=== PATIENT | male | born 1960 | race Caucasian/White ===

== ENCOUNTER 2019-08-09 12:53 | Emergency (ER) | payer OTHER, BC, SELFPAY ==
[2019-08-09 12:55] VITALS: BP 160/89; PULSE 71; RESP 18; TEMP 36.7; O2SAT 99
[2019-08-09 14:00] VITALS: BP 151/84; PULSE 75; RESP 19; TEMP 37.1; O2SAT 96
[2019-08-09 15:30] VITALS: BP 145/95
--- NOTE | 2019-08-09 23:40 | ED.GENADULT ---
HPI - General Adult <LIZZIE Vera - Last Filed: 08/09/19 23:51> General Chief complaint: Hypertension Stated complaint: High BP- 160/98, not sleeping Time Seen by Provider: 08/09/19 14:13 Source: patient Mode of arrival: Ambulatory Limitations: no limitations History of Present Illness HPI narrative: This is a 59-year-old male, nonsmoker, who presents to ED with his son with elevated blood pressure and insomnia for 4 days. Patient was evaluated by his PCP 5 days ago with nasal congestion and cold symptoms and prescribed with Tessalon cough perles Flonase and has been taking Sambucal cough lozenges. Patient has taken blood pressure at home and noticed it was elevated up to 160/98. Patient denies chest pain, breathing difficulty, dizziness, weakness to extremities, vision change, headaches. Patient's usual blood pressure is in 130 is over 80s. Patient denies frequent coughing or fever/chills. Patient works graveyard shifts and has been having difficult time sleeping even after taking melatonin 10 mg. Patient used to take Benadryl for sleep aid but advised by his primary care physician not to take Benadryl. Patient denies history of urinary retention. Related Data Home Medications Medication Instructions Recorded Confirmed metoprolol tartrate 12.5 mg PO BID #0 09/28/12 08/09/19 benzonatate 100 - 200 mg PO TID PRN 08/09/19 08/09/19 melatonin 1 tab PO BEDTIME PRN 08/09/19 08/09/19 simvastatin 40 mg PO QPM 08/09/19 08/09/19 Previous Rx's Medication Instructions Recorded zolpidem [Ambien] 5 mg PO BEDTIME #7 tab 08/09/19 Allergies Allergy/AdvReac Type Severity Reaction Status Date / Time No Known Drug Allergies Allergy Verified 08/09/19 13:02 Review of Systems <LIZZIE Vera - Last Filed: 08/09/19 23:51> Review of Systems Narrative: General: Denies fever, chills, fatigue, malaise, sweats. HEENT: Denies sinus pain, ear pain, sore throat, difficulty swallowing, dizziness. Respiratory: Denies dyspnea, cough, wheezing, hemoptysis, sputum, (+) nasal congestion. Cardiovascular: HPI Gastrointestinal: Denies nausea, vomiting, abdominal pain, diarrhea, constipation, melena. : Denies dysuria, frequency, incontinence, hematuria, urinary retention. Musculoskeletal: Denies weakness, joint pain or bony pain. Skin: Denies rash, skin lesions, or other. Neurologic: Denies weakness, headache, numbness, change in speech, confusion, seizures, incoordination. Psychiatric: No concerning psychosocial issues. 12-point review of systems is negative except for those stated above. Patient History <LIZZIE Vera - Last Filed: 08/09/19 23:51> Social History Smoking Status: Never smoker Smoking Status: Never smoker Substance Use Type: does not use Exam <LIZZIE Vera - Last Filed: 08/09/19 23:51> Narrative Exam Narrative: General appearance: well developed, well nourished, in no acute distress. Head: normocephalic, atraumatic, no scalp lesions, non-tender. ENT: Bilateral auditory canals and tympanic membranes clear. Hearing grossly intact. Nose without bleeding, purulent discharge, septal hematoma or deviation. Turbinate with erythema or swelling. Facial sinuses nontender to palpate. Mucous membrane moist, no mucosal lesion. Throat without erythema, tonsillar hypertrophy or exudate. Uvula in midline, airway patent. Neck/Thyroid: neck supple, full range of motion, no visible masses or meningeal signs. No JVD, non-tender without lymphadenopathy. Skin: no suspicious rashes, lesions over visible areas. Warm and dry and appropriate color for ethnicity. Heart: no clubbing, no cyanosis, no edema. S1 and S2 normal. RRR w/o murmurs, clicks, or bruits. Lungs: Breathing even and unlabored. Lung sounds clear to auscultate in all lobes. No stridor. No accessory muscles used. Able to speak in full sentences. Chest: normal shape and expansion. Abdomen: non-obese, non-distended. Neurologic: alert and oriented. Cognitive exam, [employer] and PNS grossly intact on informal exam. Psych: good eye contact, normal affect. Initial Vital Signs Initial Vital Signs: Vital Signs Temperature 98.1 F 08/09/19 12:55 Pulse Rate 71 08/09/19 12:55 Respiratory Rate 18 08/09/19 12:55 Blood Pressure 160/89 H 08/09/19 12:55 Pulse Oximetry 99 08/09/19 12:55 <Imani Carrillo MD - Last Filed: 08/10/19 08:11> Initial Vital Signs Initial Vital Signs: Vital Signs Temperature 98.1 F 08/09/19 12:55 Pulse Rate 71 08/09/19 12:55 Respiratory Rate 18 08/09/19 12:55 Blood Pressure 160/89 H 08/09/19 12:55 Pulse Oximetry 99 08/09/19 12:55 Scores <Wander Khoury [employer] OPERATOR - Last Filed: 08/09/19 23:51> [facility] [place] coma scale eye opening: Spontaneous [place] coma scale verbal response: Orientated Matthew coma scale motor response: Obey commands Matthew coma scale total score: 15 Medical Decision Making <Wander KhouryLIZZIE - Last Filed: 08/09/19 23:51> Differential Diagnosis Differential Diagnosis: Elevated blood pressure, viral illness, upper respiratory infection, insomn Medical Records Medical records reviewed: Yes I reviewed the patient's medical records. MDM Narrative Medical decision making narrative: Patient's physical exam was unremarkable. Patient continues to have nasal congestion. Patient is afebrile with moderately elevated blood pressure as 160/89. Patient has not been sleeping well for last 4 days without any cardiac symptoms such as chest pain, breathing difficulty, dizziness, nausea or vomiting, sweaty feeling. Tessalon cough perles' side effect does not indicates insomnia. Patient discharged to home with few tabs of Ambien for acute insomnia with possible adverse effects of medication but advised to use Benadryl 1st since this has worked in the past. Advise continue with supportive care. Patient provided with work off note for a day. Patient's blood pressure improved to 145/95 prior discharged to home. Return precautions were discussed with the patient and verbalized understanding and in agreement with the treatment plan. Discharge Plan Departure Patient Disposition: Home Clinical Impression: Elevated blood pressure reading Upper respiratory infection Qualifiers: URI type: unspecified URI Qualified Code(s): J06.9 - Acute upper respiratory infection, unspecified Insomnia Qualifiers: Insomnia type: unspecified Qualified Code(s): G47.00 - Insomnia, unspecified Discharge Date/Time: 08/09/19 15:32 Instructions: DI for High Blood Pressure, DI for Viral Upper Respiratory Infection -- Adult, DI for Insomnia Activity Restrictions/Additional Instructions: You have been diagnosed with [upper respiratory infection, elevated blood pressure and likely from insomnia for last 4 days. You do not have chest pain, breathing difficulty, or any stroke symptoms at this time. Lung sounds are clear to auscultate bilaterally. Blood pressure in the ED was 151/84.]. What to do: *Take your medications as directed. Please take [id number] Benadryl for sleep or melatonin as needed. You can take Ambien 5 mg as needed for tomorrow if you continue to have trouble with sleeping. Benzonatate does not have obvious insomnia as possible side effects. *Follow up with your primary care provider in 2-3 days, call for an appointment. Let them know you were seen in the ED and that we asked you to be seen in follow up. *Return to ED if you have any new, worsening, or concerning symptoms, such as [chest pain, breathing difficulty, unable to tolerate fluids, facial droops, speech difficulty, weakness to 1 extremities, balance difficulty or any acute concerns]. Prescriptions: New zolpidem [Ambien] 5 mg tablet 5 mg PO BEDTIME Qty: 7 RF: 0 No Action metoprolol tartrate 25 MG tablet 12.5 mg PO BID Qty: 0 RF: 0 simvastatin 40 mg tablet 40 mg PO QPM RF: 0 benzonatate 100 mg capsule 100 - 200 mg PO TID PRN (Reason: Cough) RF: 0 melatonin 1 tab PO BEDTIME PRN (Reason: Sleep) RF: 0 Referrals: Keri Piedra DO [Primary Care Provider] - <Imani Carrillo MD - Last Filed: 08/10/19 08:11> Sign Out Provider Sign Out Attestation: I was immediately available in the department for consultation throughout this patient's visit. I agree with documentation as above. Imani Carrillo MD
== END 2019-08-09 15:32 | disposition home or self-care (01) ==
PROVIDERS: Emergency Provider Nurse Practitioner Family; Family Provider Family Medicine; PCP Family Medicine
DX: I10 Essential (primary) hypertension (principal); J06.9 Acute upper respiratory infection, unspecified; G47.00 Insomnia, unspecified
CPT/HCPCS: 99281